=== PATIENT | male | born 1965 | race Caucasian/White ===

== ENCOUNTER 2016-07-27 09:40 | Observation (INO) | payer BC, OTHER ==
[~2016-07-27] VITALS: Ht 175.3 cm; Wt 79.6 kg
[~2016-07-27 09:40] MED LIST: ALKA-SELTZER PLUS C1 PO; AMOXICILLIN/CL875 MG PO; AMOXICILLIN875 MG PO; AUGMENTIN875TAB PO; CEPHALEXIN500 MG OR; DEPO-MEDROL80 MG/ML IM; FLEXERIL5 M1 PO; FLUARIX QUADRIV1 IN1 IM; LORTAB5 OR; MUPIROCIN2 % EX; NAPROSYN500 MG PO; PREDNISONE20 MG PO; TOBRAMYCIN0.3 % OS; TRAMADOL HCL50 MG OR; ZOFRAN ODT4 MG PO
--- NOTE | 2016-07-27 09:49 | NUR ---
PT TO ROOM FOR EXAM
[2016-07-27 10:26] LABS: HEMATOCRIT 47.9 % (39.0-50.0); HEMOGLOBIN 16.5 g/dl (14.0-18.0); IMMATURE GRANULOCYTES 0.4 % (0.0-1.0); MEAN CELL VOLUME 91.1 fL CALC (80.0-100.0); MEAN CORPUSCULAR HGB 31.4 pG CALC (26.0-32.0); MEAN CORPUSCULAR HGB CONC 34.4 g/L CALC (32.0-36.0); NEUT# 10.1 thou/uL (1.82-7.42); RED BLOOD COUNT 5.26 mill/uL (4.70-6.10); RED CELL DISTRI WIDTH 12.1 % (11.5-15.5)
[2016-07-27 10:32] LABS: ALBUMIN 4.8 g/dL (3.2-5.0); ALKALINE PHOSPHATASE 57 u/l (38-126); AMYLASE 165 u/l (30-110); ANION GAP 16 (6-22 (CALC)); BILIRUBIN, TOTAL 0.9 mg/dL (0.0-1.4); BUN 20 mg/dL (9-20); BUN/CREATININE RATIO 20 (12-20 (CALC)); CALCIUM 9.5 mg/dL (8.4-10.2); CARBON DIOXIDE 29 mmol/l (22-30); CHLORIDE 102 mmol/l (95-108); GFR > 60 ML/MIN (>=60 (CALC)); GFR FOR AFR.AMER. > 60 ML/MIN (>=60 (CALC)); GLUCOSE 105 mg/dL (75-110); LIPASE 759 u/l (23-300); POTASSIUM 4.5 mmol/l (3.5-5.1); SGOT/AST 23 u/l (17-59); SGPT/ALT 32 u/l (21-72); SODIUM 142 mmol/l (137-146); TOTAL PROTEIN 8.3 g/dL (6.3-8.2)
[2016-07-27 10:44] LABS: MYOGLOBIN 28 ng/mL (0 - 121)
--- NOTE | 2016-07-27 10:49 | NUR ---
PATIENT RESTING AWAITING LAB AND RADIOLOGY RESULTS PAIN4 ON 0-10 SCALE
[2016-07-27 11:03] LABS: C. DIFFICILE TOXIN A&B NEGATIVE (NEGATIVE)
--- NOTE | 2016-07-27 11:50 | NUR ---
PATIENT RESTING AWAITING LAB AND RADIOLOGY RESULTS PAIN 4 ON 0-10 SCALE NAUSEA DECREASED
--- NOTE | 2016-07-27 12:50 | NUR ---
PATIENT RESTING AWAITING RADIOLOGY RESULTS PATIENT MEDICATED ORDERED. PAIN 2 ON 0-10 SCALE
--- NOTE | 2016-07-27 13:50 | NUR ---
PATIENT RESTING AWAITING ROOM ASSIGNMENT PAIN 2 ON 0-10 SCALE
--- NOTE | 2016-07-27 14:48 | NUR ---
REPORT CALLED TO FLOOR AND PATIENT TRANSPORTED
--- NOTE | 2016-07-27 14:50 | NUR ---
FROM ER VIA STRETCHER ACCOMPANIED BY RADHA MCKINNEY. AMBULATES TO BED WITH STEADY GAIT. #18 LAC INFUSING WITHOUT DIFFICULTY, SITE APPEARS HEALTHY. DENIES PAIN OR DISCOMFORT. ORIENTED TO ROOM AND CALL SYSTEM. SAFETY PRECAUTIONS REINFORCED. BED IN LOWEST POSITION WITH WHEELS LOCKED. CALL LIGHT WITHIN REACH. WILL CONTINUE TO MONITOR.
[2016-07-27 14:57] VITALS: BP 108/57
--- NOTE | 2016-07-27 16:31 | NUR ---
RESTING IN SUPINE POSITON. C/O CRAMPING ABD PAIN 12/04. MEDICATED WITH LORTAB PO FOR RELIEF. WILL CONTINUE TO MONITOR, CALL LIGHT WITHIN REACH.
--- NOTE | 2016-07-27 19:00 | NUR ---
RECEIVED CHANGE OF SHIFT REPORT ON PATIENT. NO COMPLAINTS VOICED. RESTING COMPORTABLY IN BED.
[2016-07-27 19:04] VITALS: BP 124/60
--- NOTE | 2016-07-27 22:17 | NUR ---
PT. RESTING IN BED WITH NO DISTRESS NOTED. IVF INFUSING. JELLO AND ICE PROVIDED PER PTS REQUEST. ENCOURAGED TO CALL FOR ANY NEEDS. CALL LIGHT IS IN REACH.
--- NOTE | 2016-07-28 | NUR ---
PATIENT RESTING COMFORTABLY IN BED. NO ACUTE DISTRESS NOTED.
[2016-07-28 04:11] VITALS: BP 93/51
[2016-07-28 05:27] LABS: AMYLASE 30 u/l (30-110); ANION GAP 10 (6-22 (CALC)); BUN 9 mg/dL (9-20); BUN/CREATININE RATIO 11 (12-20 (CALC)); CALCIUM 7.9 mg/dL (8.4-10.2); CARBON DIOXIDE 25 mmol/l (22-30); CHLORIDE 105 mmol/l (95-108); CREATININE 0.8 mg/dL (0.7-1.3); GFR > 60 ML/MIN (>=60 (CALC)); GFR FOR AFR.AMER. > 60 ML/MIN (>=60 (CALC)); GLUCOSE 91 mg/dL (75-110); LIPASE 73 u/l (23-300); POTASSIUM 3.5 mmol/l (3.5-5.1); SODIUM 136 mmol/l (137-146)
[2016-07-28 05:32] LABS: HEMATOCRIT 36.1 % (39.0-50.0); HEMOGLOBIN 12.7 g/dl (14.0-18.0); IMMATURE GRANULOCYTES 0.3 % (0.0-1.0); MEAN CELL VOLUME 90.5 fL CALC (80.0-100.0); MEAN CORPUSCULAR HGB 31.8 pG CALC (26.0-32.0); MEAN CORPUSCULAR HGB CONC 35.2 g/L CALC (32.0-36.0); NEUT# 4.57 thou/uL (1.82-7.42); RED BLOOD COUNT 3.99 mill/uL (4.70-6.10); RED CELL DISTRI WIDTH 12.1 % (11.5-15.5)
--- NOTE | 2016-07-28 07:19 | NUR ---
BEDSIDE REPORT RECEIVED FROM FAYE SARKAR. PT REQUESTING JUICE. DENIES PAIN. REPORTING OF CONCERNS ENCOURAGED. PLAN OF CARE DISCUSSED. CALL LIGHT REVIEWED AND IN REACH. PT STATES UNDERSTANDING.
[2016-07-28 07:55] VITALS: BP 109/69
--- NOTE | 2016-07-28 08:58 | NUR ---
PT REPORTS RELIEF OF ABDOMINAL PAIN AFTER RECENT MEDICATION WITH LORTAB PO. NO NAUSEA AT THIS TIME. REPORTS DIARRHEA X 2 THIS AM AND EMESIS X 3 DURING THE NIGHT. REPORTING OF CONCERNS ENCOURAGED. CALL LIGHT WITHIN REACH. FAMILY MEMBERS AT BEDSIDE. WILL CONTINUE TO MONITOR.
[2016-07-28 11:46] LABS: TSH, 3RD GENERATION 1.52 uIU/mL (0.47 - 4.68)
[2016-07-28] MEDS ORDERED: METRONIDAZOL500 MG PO (12:58)
[2016-07-28] MEDS ORDERED: FLORASTOR250 M1 PO (12:58)
--- NOTE | 2016-07-28 13:41 | NUR ---
Discharge instructions given. Patient verbalizes understanding of same. Discharged in stable condition via Ambulatory to Home with family. All belongings sent with pt.
== END 2016-07-28 13:24 | disposition home or self-care (01) | DRG 392 ==
LOC: ENPENDDIS → ED 09:40 → ED-I 12:47 → ED 12:58 → MS2 13:41
PROVIDERS: Emergency Medicine; Internal Medicine; ADMIT Internal Medicine; ATTEND Internal Medicine
DX: K52.9 Noninfective gastroenteritis and colitis, unspecified (principal); I95.9 Hypotension, unspecified; E86.0 Dehydration; Z87.891 Personal history of nicotine dependence
CPT/HCPCS: G0378; Q9967

== ENCOUNTER 2017-10-05 17:20 | Emergency (ER) | payer SELFPAY ==
[~2017-10-05] VITALS: Ht 175.3 cm; Wt 56.2 kg
[~2017-10-05 17:20] MED LIST changes: +FLORASTOR250 M1 PO; +METRONIDAZOL500 MG PO
[2017-10-05 17:28] VITALS: BP 116/79
== END 2017-10-05 17:41 | disposition left against medical advice (07) | DRG 951 ==
LOC: ED 17:20 → LWOBS 17:35 → ED 17:35
DX: Z91.19 Patient's noncompliance with other medical treatment and regimen (principal)

== ENCOUNTER 2018-01-13 05:53 | Day surgery (SDC) | payer SELFPAY ==
[~2018-01-13] VITALS: Ht 175.3 cm; Wt 81.6 kg
[~2018-01-13 05:53] MED LIST changes: +TIZANIDINE PO; +TIZANIDINE2 MG PO
[2018-01-13] MEDS ORDERED: XANAX0.25 MG PO (06:11)
[2018-01-13 07:36] VITALS: BP 101/65
== END 2018-01-13 07:46 | disposition home or self-care (01) | DRG 951 ==
LOC: ENDO 05:53
PROVIDERS: ATTEND Surgery
PROC: 0DJD8ZZ Inspection of Lower Intestinal Tract, Via Natural or Artificial Opening Endoscopic (ICD-10-PCS; principal; 2018-01-13)
DX: Z12.11 Encounter for screening for malignant neoplasm of colon (principal); K57.30 Diverticulosis of large intestine without perforation or abscess without bleeding

== ENCOUNTER 2018-04-08 22:12 | Emergency (ER) | payer OTHER ==
[~2018-04-08] VITALS: Ht 175.3 cm; Wt 82.0 kg
[~2018-04-08 22:12] MED LIST changes: +XANAX0.25 MG PO
[2018-04-08 23:12] VITALS: BP 119/72
== END 2018-04-08 23:11 | disposition home or self-care (01) ==
LOC: ED 22:12
DX: H53.8 Other visual disturbances (principal); W25.XXXA Contact with sharp glass, initial encounter; Y93.89 Activity, other specified; Y92.79 Other farm location as the place of occurrence of the external cause; Y99.0 Civilian activity done for income or pay

== ENCOUNTER 2021-04-26 20:46 | Emergency (ER) | payer SELFPAY ==
[~2021-04-26] VITALS: Ht 175.3 cm; Wt 86.0 kg
[2021-04-26] MEDS ORDERED: TRAMADOL HCL50 MG PO (21:20)
[2021-04-26] MEDS ORDERED: SILVADENE1 % EX (21:20)
[2021-04-26] MEDS ORDERED: MOTRIN800 MG PO (21:20)
[2021-04-26] MEDS ORDERED: BACTRIM DS1 TAB PO (21:20)
[2021-04-26 21:50] VITALS: BP 131/83
== END 2021-04-26 21:50 | disposition home or self-care (01) | DRG 935 ==
LOC: ED 20:46
PROC: 2W2KX4Z Dressing of Left Finger using Bandage (ICD-10-PCS; principal; 2021-04-26)
DX: T23.222A Burn of second degree of single left finger (nail) except thumb, initial encounter (principal); F17.200 Nicotine dependence, unspecified, uncomplicated; W39.XXXA Discharge of firework, initial encounter; Y93.89 Activity, other specified; Y92.009 Unspecified place in unspecified non-institutional (private) residence as the place of occurrence of the external cause